=== PATIENT | female | born 1965 | race Two or more races ===

== ENCOUNTER 2020-01-02 15:24 | Emergency (ER) | payer OTHER ==
[~2020-01-02] VITALS: Ht 162.6 cm; Wt 49.9 kg
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
--- NOTE | 2020-01-02 16:08 | NUR ---
[place] business unit director at bedside for eval.
[2020-01-02] MEDS ORDERED: LORAZEPAM INJ 2 MG/ML VIAL IM ONE (16:30)
[2020-01-02] MEDS ORDERED: OLANZAPINE 10 MG VIAL IM ONE ×4 (16:30→19:20)
[2020-01-02] MEDS ORDERED: LORAZEPAM INJ 2 MG/ML VIAL ONE (16:31)
--- NOTE | 2020-01-02 16:35 | NUR ---
pt is combative. refusing to go for a head ct scan. [employer] person aware. medicated as ordered. see emar.
[2020-01-02 18:02] LABS: BASOPHILS # (AUTO) 0.1 /CMM (0.0-0.2); EOSINOPHILS % (AUTO) 0.3 % (0.0-6.0); HEMATOCRIT 40 % (33-45); HEMOGLOBIN 12.9 g/dL (11.5-14.8); LYMPHOCYTES # (AUTO) 1.1 /CMM (0.8-4.8); LYMPHOCYTES % (AUTO) 17.3 % (20.0-44.0); MEAN CORPUSCULAR HGB CONC 33 g/dl (31.0-36.0); MEAN CORPUSCULAR VOLUME 94 fL (82-100); MONOCYTES # (AUTO) 0.5 /CMM (0.1-1.30); MONOCYTES % (AUTO) 7.3 % (2.0-12.0); NEUTROPHILS # (AUTO) 4.9 /CMM (1.8-8.9); NEUTROPHILS % (AUTO) 74.1 % (43.0-81.0); PLATELET COUNT (AUTO) 235 /CMM (150-450); RED BLOOD CELL COUNT(AUTO) 4.18 MIL/uL (4.0-5.2); WHITE BLOOD COUNT (AUTO) 6.6 K/uL (4.3-11.0)
[2020-01-02 18:22] LABS: CALCIUM, SERUM 9.2 mg/dL (8.5-10.1); CARBON DIOXIDE 23 mmol/L (21-32); CHLORIDE 108 mmol/L (98-107); CREATININE 0.6 mg/dL (0.6-1.3); GLUCOSE 106 mg/dL (74-106); POTASSIUM 3.3 mmol/L (3.5-5.1); SODIUM SERUM 145 mmol/L (136-145); UREA NITROGEN, BLOOD 18 mg/dL (7-18)
[2020-01-02 18:28] LABS: ALANINE AMINOTRANSFERASE 19 U/L (12-78); ALBUMIN 4.1 g/dL (3.4-5.0); ALCOHOL, BLOOD < 3 mg/dL (0-0); ALKALINE PHOSPHATASE 45 U/L (46-116); ASPARTATE AMINOTRANSFERASE 16 U/L (15-37); BILIRUBIN,DIRECT 0.2 mg/dL (0.0-0.2); BILIRUBIN,TOTAL 0.9 mg/dL (0.2-1.0); TOTAL PROTEIN, SERUM 7.7 g/dL (6.4-8.2)
[2020-01-02 18:29] LABS: ACETAMINOPHEN < 2 ug/ml (10-30)
--- NOTE | 2020-01-02 19:10 | NUR ---
URINE SAMPLE COLLECTED VIA STRAIGHT CATHETER, SAMPLE SENT TO LAB
--- NOTE | 2020-01-02 19:14 | NUR ---
RAPID COVID SWAB DONE AND SENT TO LAB
[2020-01-02 20:05] LABS: APPEARANCE,URINE SL CLOUDY (CLEAR); BILIRUBIN,URINE NEGATIVE (NEGATIVE); BLOOD, URINE NEGATIVE Ery/uL (NEGATIVE); COLOR,URINE YELLOW (YELLOW); KETONES,URINE 15 (NEGATIVE); LEUKOCYTE ESTERASE ,URINE NEGATIVE (NEGATIVE); NITRITE, URINE NEGATIVE (NEGATIVE); PROTEIN,URINE NEGATIVE (NEGATIVE); UGLUCOSE NEGATIVE (NEGATIVE); UROBILINOGEN,URINE 0.2 EU/dL (0.2)
--- NOTE | 2020-01-02 20:20 | NUR ---
PT TAKEN TO RADIOLOGY FOR CT
--- NOTE | 2020-01-02 20:23 | NUR ---
Call from lab, Rapid covid negative.
[2020-01-02 20:26] LABS: BACTERIA,URINE None seen /HPF (None Seen); RBC,URINE 0-2 /HPF (0-2); SQUAMOUS EPITHELIAL CELL,UR 0-2 /HPF (None Seen); WBC,URINE 0-2 /HPF (0-3)
[2020-01-02 20:27] LABS: MUCUS,URINE Few /LPF (None Seen)
--- NOTE | 2020-01-02 20:40 | NUR ---
PT BACK FROM RADIOLOGY
--- NOTE | 2020-01-02 23:06 | NUR ---
pt ok to be discharged per [employer]. IV removed. Catheter intact and site benign. Pressure and 4x4 applied to site. No bleeding noted.Patient discharged in custody of [employer] in stable condition. Written and verbal after care instructions given. Patient verbalizes understanding of instruction. pt ambulatory with a steady gait
[2020-01-03 01:30] VITALS: BP 126/89
== END 2020-01-03 01:30 ==
LOC: ER 15:28 → EDBD 15:28 → ER 01-03 01:30
DX: Z04.89 Encounter for examination and observation for other specified reasons (principal); F15.10 Other stimulant abuse, uncomplicated; S00.83XA Contusion of other part of head, initial encounter; Y35.813A Legal intervention involving manhandling, suspect injured, initial encounter; Y92.89 Other specified places as the place of occurrence of the external cause; Z59.0 Homelessness; R45.1 Restlessness and agitation; Z20.828 Contact with and (suspected) exposure to other viral communicable diseases
CPT/HCPCS: 36415; 70450; 72125; 80048; 80076; 80299; 80307 ×2; 80320; 81001; 85025; 87426; 96372 ×2; 99285; C9803; J2060; J3490 ×2; J7030; 81000-TC; G0480